=== PATIENT | female | born 1965 | race Caucasian/White ===

== ENCOUNTER 2017-06-28 13:26 | Emergency (ER) | payer OTHER ==
[~2017-06-28] VITALS: Ht 165.1 cm; Wt 82.6 kg
[2017-06-28] MEDS ORDERED: HYZAAR 50-12.51 EACH (13:37)
[2017-06-28] MEDS ORDERED: LIPITOR20 MG (13:38)
== END 2017-06-28 16:37 | disposition home or self-care (01) ==
LOC: ER 13:26
DX: B36.8 Other specified superficial mycoses (principal)

== ENCOUNTER 2023-08-16 12:58 | Emergency (ER) | payer OTHER ==
[~2023-08-16] VITALS: Ht 165.1 cm; Wt 86.2 kg
[~2023-08-16 12:58] MED LIST: HYZAAR 50-12.51 EACH; LIPITOR20 MG
[2023-08-16] MEDS ORDERED: LIDOCAINE HCL 100 MG/10ML VIAL PERCUT ONE (17:30)
[2023-08-16] MEDS ORDERED: TETANUS & DIPHTHERIA TOX,ADULT 0.5 ML VIAL IM ONE (17:30)
[2023-08-16] MEDS ORDERED: DUI500 PO (19:45)
== END 2023-08-16 19:58 ==
LOC: ER 12:58
DX: S01.82XA Laceration with foreign body of other part of head, initial encounter (principal); W45.8XXA Other foreign body or object entering through skin, initial encounter; Y93.89 Activity, other specified; Y92.89 Other specified places as the place of occurrence of the external cause; I10 Essential (primary) hypertension

== ENCOUNTER 2023-08-26 08:33 | Emergency (ER) | payer OTHER ==
[~2023-08-26] VITALS: Ht 165.1 cm; Wt 86.2 kg
[~2023-08-26 08:33] MED LIST changes: +DUI500 PO
== END 2023-08-26 10:43 | disposition home or self-care (01) ==
LOC: ER
DX: Z48.02 Encounter for removal of sutures (principal)